=== PATIENT | female | born 1985 | race Caucasian/White ===

== ENCOUNTER 2018-03-14 16:34 | Emergency (ER) | END 2018-03-14 20:20 | disposition home or self-care (01) ==

== ENCOUNTER 2019-02-24 10:30 | Emergency (ER) | payer MEDICAID, OTHER ==
[~2019-02-24] VITALS: Ht 170.2 cm; Wt 62.0 kg
[~2019-02-24 10:30] MED LIST: IBUP-1542 PO; TRAM50TA2 PO
[2019-02-24 10:38] VITALS: BP 116/64; PULSE 61; RESP 16; Ht 170.2 cm; Wt 62.0 kg
[2019-02-24] MEDS ORDERED: KETOROLAC 30 MG INJ IM STA (11:55)
== END 2019-02-24 13:26 | disposition home or self-care (01) ==
LOC: FTE 10:30
DX: N83.201 Unspecified ovarian cyst, right side (principal)
CPT/HCPCS: 76830; 76856; 81001; 81025; 96372; J1885; Z7502